=== PATIENT | female | born 1960 | race Caucasian/White ===

== ENCOUNTER 2019-04-24 19:42 | Emergency (ER) | payer MEDICARE ==
[~2019-04-24] VITALS: Ht 157.5 cm; Wt 55.5 kg
[~2019-04-24 19:42] MED LIST: ASPI-611 PO; ESCI10TA PO; HYDR-4383 PO; LORA0.5T PO; METO25TA6 PO; TRAZ-219 PO
[2019-04-24 20:42] LABS: URINE HCG NEGATIVE (NEG)
[2019-04-24 20:48] LABS: URINE AMPHETAMINE SCREEN NEGATIVE (Neg); URINE BARBITUATE SCREEN NEGATIVE (Neg); URINE BENZODIAZEPINES SCREEN POSITIVE (Neg); URINE CANNABINOID SCREEN POSITIVE (Neg); URINE COCAINE SCREEN NEGATIVE (Neg); URINE METHADONE SCREEN NEGATIVE (Neg); URINE OPIATE SCREEN POSITIVE (Neg); URINE PHENCYCLIDINE SCREEN NEGATIVE (Neg)
[2019-04-24 20:52] VITALS: BP 146/79
[2019-04-24 21:29] LABS: EOSINOPHILS # (AUTO) 0.3 X10'3 (0-0.9); HEMOGLOBIN 13.6 g/dl (12.0-16.0); LYMPHOCYTES # (AUTO) 4.4 X10'3 (1.1-4.8); LYMPHOCYTES % (AUTO) 49.1 % (21-51); MEAN PLATELET VOLUME 7.1 FL (7.4-10.4); MONOCYTES # (AUTO) 0.5 X10'3 (0-0.9); MONOCYTES % (AUTO) 5.4 % (2-12); RED CELL DISTRIBUTION WIDTH 15.8 % (11.5-14.5); WHITE BLOOD COUNT 8.9 X10'3 (4.5-11.0)
[2019-04-24 21:33] LABS: BASOPHILS # (AUTO) 0.1 X10'3 (0-0.2); BASOPHILS % (AUTO) 1.4 % (0-1); EOSINOPHILS % (AUTO) 3.3 % (0-6); HEMATOCRIT 40.7 % (35.0-45.0); MEAN CORPUSCULAR HEMOGLOBIN 33.5 PG (27.0-31.0); MEAN CORPUSCULAR HGB CONC 33.4 g/dL (33.0-36.5); MEAN CORPUSCULAR VOLUME 100.5 FL (78-98); NEUTROPHILS # (AUTO) 3.6 X10'3 (1.8-7.7); NEUTROPHILS % (AUTO) 40.8 % (42-75); PLATELET COUNT 319 X10'3 (140-440); RED BLOOD COUNT 4.05 X10'6 (4.20-5.60)
[2019-04-24 21:37] LABS: ALANINE AMINOTRANSFERASE 63 U/L (12-78); ALBUMIN 4.4 G/DL (3.4-5.0); ALBUMIN/GLOBULIN RATIO 1.2 (1.1-1.5); ALKALINE PHOSPHATASE 80 IU/L (46-116); ANION GAP 16 (8-16); ASPARTATE AMINO TRANSFERASE 62 U/L (10-37); BILIRUBIN,TOTAL 0.2 MG/DL (0.1-1.0); BLOOD UREA NITROGEN 12 MG/DL (7-18); BUN/CREATININE RATIO 16.9 (6.6-38.0); CALCIUM 8.5 MG/DL (8.5-10.1); CHLORIDE 110 MMOL/L (99-107); CREATININE 0.71 MG/DL (0.40-0.90); GLUCOSE 80 MG/DL (70-104); SODIUM 149 MMOL/L (135-145); TOTAL CARBON DIOXIDE 23.4 MMOL/L (24-32); TOTAL PROTEIN 8.2 G/DL (6.4-8.2); eGFR 84 ML/MIN
[2019-04-24 21:56] LABS: ETHANOL 0.311 GM/DL (0.0-0.010)
[2019-04-24] MEDS ORDERED: diphenhydrAMINE 25mg capsule PO ONE (22:15)
== END 2019-04-24 22:29 | disposition left against medical advice (07) ==
LOC: ER 19:43
DX: F32.9 Major depressive disorder, single episode, unspecified (principal); F10.129 Alcohol abuse with intoxication, unspecified; I10 Essential (primary) hypertension; G89.29 Other chronic pain; Z90.710 Acquired absence of both cervix and uterus; Z98.890 Other specified postprocedural states; Z79.82 Long term (current) use of aspirin; Z79.899 Other long term (current) drug therapy
CPT/HCPCS: 36415; 80053; 80305; 80320; 81025; 84443; 85025; 93005; 99284

== ENCOUNTER 2019-05-08 06:24 | Emergency (ER) | payer MEDICARE ==
[~2019-05-08] VITALS: Ht 157.5 cm; Wt 56.0 kg
[2019-05-08] MEDS ORDERED: OLANZapine 5mg rapidly disint. tablet PO ONE (06:35)
--- NOTE | 2019-05-08 07:14 | NUR ---
Pt states she is depressed but not suicidal. states she needs to know where the rest of her sons body parts are located.
[2019-05-08] MEDS ORDERED: diazepam 5mg tablet PO ONE (07:35)
--- NOTE | 2019-05-08 07:57 | NUR ---
Pt sitting up eating a sandwhich, calm/cooperative.
[2019-05-08 08:04] LABS: BASOPHILS # (AUTO) 0.1 X10'3 (0-0.2); BASOPHILS % (AUTO) 0.9 % (0-1); EOSINOPHILS # (AUTO) 0.3 X10'3 (0-0.9); EOSINOPHILS % (AUTO) 4.1 % (0-6); HEMATOCRIT 38.4 % (35.0-45.0); HEMOGLOBIN 13.2 g/dl (12.0-16.0); LYMPHOCYTES # (AUTO) 3.2 X10'3 (1.1-4.8); LYMPHOCYTES % (AUTO) 38.8 % (21-51); MEAN CORPUSCULAR HEMOGLOBIN 34.5 PG (27.0-31.0); MEAN CORPUSCULAR HGB CONC 34.4 g/dL (33.0-36.5); MEAN CORPUSCULAR VOLUME 100.3 FL (78-98); MEAN PLATELET VOLUME 7.2 FL (7.4-10.4); MONOCYTES # (AUTO) 0.8 X10'3 (0-0.9); MONOCYTES % (AUTO) 9.8 % (2-12); NEUTROPHILS # (AUTO) 3.9 X10'3 (1.8-7.7); NEUTROPHILS % (AUTO) 46.4 % (42-75); PLATELET COUNT 274 X10'3 (140-440); RED BLOOD COUNT 3.83 X10'6 (4.20-5.60); RED CELL DISTRIBUTION WIDTH 15.3 % (11.5-14.5); WHITE BLOOD COUNT 8.3 X10'3 (4.5-11.0)
[2019-05-08 08:05] LABS: CLARITY,URINE SLIGHTLY CLOUDY (Clear); COLOR,URINE YELLOW (Yellow); GLUCOSE, URINE NEGATIVE (Neg); KETONES,URINE NEGATIVE (Neg); LEUKOCYTE ESTERASE ,URINE LARGE (Neg); NITRITES, URINE POSITIVE (Neg); OCCULT BLOOD,URINE NEGATIVE (Neg); PROTEIN,URINE NEGATIVE (Neg); UROBILINOGEN,URINE 0.2 E.U/dL (0.2-1.0)
[2019-05-08 08:06] LABS: ALANINE AMINOTRANSFERASE 83 U/L (12-78); ALBUMIN 4.2 G/DL (3.4-5.0); ALBUMIN/GLOBULIN RATIO 1.2 (1.1-1.5); ALKALINE PHOSPHATASE 82 IU/L (46-116); ANION GAP 9 (8-16); ASPARTATE AMINO TRANSFERASE 88 U/L (10-37); BILIRUBIN,TOTAL 0.2 MG/DL (0.1-1.0); BLOOD UREA NITROGEN 10 MG/DL (7-18); BUN/CREATININE RATIO 15.2 (6.6-38.0); CALCIUM 8.9 MG/DL (8.5-10.1); CHLORIDE 109 MMOL/L (99-107); CREATININE 0.66 MG/DL (0.40-0.90); ETHANOL 0.239 GM/DL (0.0-0.010); GLUCOSE 87 MG/DL (70-104); POTASSIUM 3.7 MMOL/L (3.5-5.1); SODIUM 147 MMOL/L (135-145); TOTAL CARBON DIOXIDE 28.8 MMOL/L (24-32); TOTAL PROTEIN 7.8 G/DL (6.4-8.2); eGFR > 90 ML/MIN
[2019-05-08 08:06] LABS: UA COLLECTION TYPE CLN CATCH MIDSTREAM; URINE AMPHETAMINE SCREEN NEGATIVE (Neg); URINE BARBITUATE SCREEN NEGATIVE (Neg); URINE BENZODIAZEPINES SCREEN POSITIVE (Neg); URINE CANNABINOID SCREEN POSITIVE (Neg); URINE COCAINE SCREEN NEGATIVE (Neg); URINE METHADONE SCREEN NEGATIVE (Neg); URINE OPIATE SCREEN NEGATIVE (Neg); URINE PHENCYCLIDINE SCREEN NEGATIVE (Neg)
[2019-05-08 08:17] LABS: WBC,URINE 30-50 /HPF (0-4)
[2019-05-08 08:18] LABS: RBC,URINE 0-2 /HPF (0-2)
[2019-05-08 08:20] LABS: BACTERIA,URINE 3+ /HPF (Neg); SQUAMOUS EPITHELIAL CELL,UR MANY /LPF (FEW)
[2019-05-08] MEDS ORDERED: diphenhydrAMINE 50 mg/ml inj IM ONE (09:00)
[2019-05-08] MEDS ORDERED: haloperidol lactate 5mg/ml inj IM ONE (09:00)
--- NOTE | 2019-05-08 09:12 | NUR ---
Pt began threatening to leave, walked out of room and attempted to leave ER. Staff and security able to talk patient back to her room. Pt received medication per MD order. Pt is now calm/cooperative and laying down.
--- NOTE | 2019-05-08 09:27 | NUR ---
PACKET FAXED TO [facility]
--- NOTE | 2019-05-08 10:10 | NUR ---
pt appears to be resting quietly in bed. pt was up at nurses station approx 25 minutes ago thinking it was 0400. pt was reoriented, ambulated to the restroom then back to bed.
--- NOTE | 2019-05-08 10:40 | NUR ---
pt is resting quietly and sleeping on right side
--- NOTE | 2019-05-08 11:03 | NUR ---
Pt sleeping, no signs of distress noted at this time
--- NOTE | 2019-05-08 11:19 | NUR ---
maryfrienanu came by to give keys to patient luz [phone]
--- NOTE | 2019-05-08 11:59 | NUR ---
PT RESTING QUIETLY ON SIDE
--- NOTE | 2019-05-08 12:20 | NUR ---
PT WENT TO BATHROOM AND ASKED FOR MORE MEDS. NURSE GAVE PT MEDS AT 0912 AND NOTHING IS DUE AT THE MOMENT
--- NOTE | 2019-05-08 12:23 | NUR ---
PT CAME BACK UP TO ASK FOR PAIN MEDS
[2019-05-08] MEDS ORDERED: HYDROcodone/acetaminophen 5mg/325mg tablet PO ONE (12:55)
[2019-05-08] MEDS ORDERED: cephalexin 250mg capsule PO ONE (13:00)
--- NOTE | 2019-05-08 14:10 | NUR ---
pt has increased anxiety and is up to the desk frequently. pt first talking about a bump on her left arm stating that she had a blood clot 10 years ago that lead her to be on coumadin. pt does have a bump on her arm that appears slightly pink in color and is firm, md notified. pt also requesting telephone to call significant other. pt s/w sig. other on phone and redirection will cont to be encouraged. no signs of distress noted.
--- NOTE | 2019-05-08 14:11 | NUR ---
pt is standing in front of me on speaker phone with boyfriend
--- NOTE | 2019-05-08 14:59 | NUR ---
pts boyfriend is at bedside and gave pt hearing aide batteries
--- NOTE | 2019-05-08 17:29 | NUR ---
[facility] AT BEDSIDE TALKING WITH PT
--- NOTE | 2019-05-08 17:53 | NUR ---
pt was cleared from mental health. pt is now getting dressed to go home.
[2019-05-08] MEDS ORDERED: CEPH500C5 PO (17:54)
[2019-05-08 18:02] VITALS: BP 134/82
[2019-05-08] MEDS ORDERED: lactobacillus rhamnosus 10,000 MMU CELLS/CAPSULE PO SCH (20:00)
== END 2019-05-08 18:00 | disposition home or self-care (01) ==
LOC: ER 06:25
DX: F10.929 Alcohol use, unspecified with intoxication, unspecified (principal); F32.9 Major depressive disorder, single episode, unspecified; N39.0 Urinary tract infection, site not specified; R45.851 Suicidal ideations; I10 Essential (primary) hypertension; G89.29 Other chronic pain; Z90.710 Acquired absence of both cervix and uterus; Z98.890 Other specified postprocedural states; Z79.82 Long term (current) use of aspirin; Z79.899 Other long term (current) drug therapy; Y90.9 Presence of alcohol in blood, level not specified
CPT/HCPCS: 36415; 80053; 80305; 80320; 81001; 85025; 96372; 99284; J1200; J1630

== ENCOUNTER 2019-09-16 13:52 | Emergency (ER) | payer BC, MEDICARE, OTHER ==
[~2019-09-16] VITALS: Ht 157.5 cm; Wt 55.8 kg
[~2019-09-16 13:52] MED LIST changes: +CEPH500C5 PO; -TRAZ-219 PO; +TRAZ-256 PO
[2019-09-16 14:04] VITALS: BP 121/73
[2019-09-16] MEDS ORDERED: CHLO25CA10 PO (15:01)
== END 2019-09-16 15:19 | disposition home or self-care (01) ==
LOC: ER 13:52
DX: R25.1 Tremor, unspecified (principal); I10 Essential (primary) hypertension; G89.29 Other chronic pain; Z98.890 Other specified postprocedural states; Z72.89 Other problems related to lifestyle; Z79.82 Long term (current) use of aspirin; Z79.899 Other long term (current) drug therapy
CPT/HCPCS: 99284

== ENCOUNTER 2020-02-01 01:22 | Emergency (ER) | payer BC ==
[~2020-02-01] VITALS: Ht 157.5 cm; Wt 54.5 kg
[~2020-02-01 01:22] MED LIST changes: +CHLO25CA10 PO
[2020-02-01 01:26] VITALS: BP 126/89
--- NOTE | 2020-02-01 02:06 | NUR ---
Patient up to the bathroom
[2020-02-01 02:21] LABS: BASOPHILS # (AUTO) 0.1 X10'3 (0-0.2); BASOPHILS % (AUTO) 1.4 % (0-1); EOSINOPHILS # (AUTO) 0.3 X10'3 (0-0.9); HEMATOCRIT 33.5 % (35.0-45.0); HEMOGLOBIN 11.2 g/dl (12.0-16.0); LYMPHOCYTES # (AUTO) 2.7 X10'3 (1.1-4.8); LYMPHOCYTES % (AUTO) 32.4 % (21-51); MEAN CORPUSCULAR HEMOGLOBIN 33.8 PG (27.0-31.0); MEAN CORPUSCULAR HGB CONC 33.5 g/dL (33.0-36.5); MEAN PLATELET VOLUME 8.5 FL (7.4-10.4); MONOCYTES # (AUTO) 0.5 X10'3 (0-0.9); MONOCYTES % (AUTO) 6.6 % (2-12); NEUTROPHILS # (AUTO) 4.6 X10'3 (1.8-7.7); NEUTROPHILS % (AUTO) 55.6 % (42-75); PLATELET COUNT 146 X10'3 (140-440); RED BLOOD COUNT 3.32 X10'6 (4.20-5.60); RED CELL DISTRIBUTION WIDTH 15.2 % (11.5-14.5); WHITE BLOOD COUNT 8.2 X10'3 (4.5-11.0)
[2020-02-01 02:22] LABS: CLARITY,URINE CLEAR (Clear); COLOR,URINE YELLOW (Yellow); GLUCOSE, URINE NEGATIVE (Neg); KETONES,URINE NEGATIVE (Neg); LEUKOCYTE ESTERASE ,URINE NEGATIVE (Neg); NITRITES, URINE NEGATIVE (Neg); OCCULT BLOOD,URINE NEGATIVE (Neg); PROTEIN,URINE NEGATIVE (Neg); UA COLLECTION TYPE CLN CATCH MIDSTREAM; URINE HCG NEGATIVE (NEG)
[2020-02-01 02:34] LABS: ALANINE AMINOTRANSFERASE 72 U/L (12-78); ALBUMIN 3.7 G/DL (3.4-5.0); ALBUMIN/GLOBULIN RATIO 1.1 (1.1-1.5); ALKALINE PHOSPHATASE 73 IU/L (46-116); ANION GAP 11 (8-16); ASPARTATE AMINO TRANSFERASE 69 U/L (10-37); BILIRUBIN,TOTAL 0.3 MG/DL (0.1-1.0); BLOOD UREA NITROGEN 5 MG/DL (7-18); BUN/CREATININE RATIO 9.1 (6.6-38.0); CALCIUM 8.3 MG/DL (8.5-10.1); CHLORIDE 104 MMOL/L (99-107); CREATININE 0.55 MG/DL (0.40-0.90); GLUCOSE 89 MG/DL (70-104); POTASSIUM 3.6 MMOL/L (3.5-5.1); SODIUM 144 MMOL/L (135-145); TOTAL CARBON DIOXIDE 29.5 MMOL/L (24-32); TOTAL PROTEIN 7.1 G/DL (6.4-8.2); eGFR > 90 ML/MIN
[2020-02-01 02:36] LABS: URINE AMPHETAMINE SCREEN NEGATIVE (Neg); URINE BARBITUATE SCREEN NEGATIVE (Neg); URINE BENZODIAZEPINES SCREEN POSITIVE (Neg); URINE CANNABINOID SCREEN POSITIVE (Neg); URINE COCAINE SCREEN NEGATIVE (Neg); URINE METHADONE SCREEN NEGATIVE (Neg); URINE OPIATE SCREEN NEGATIVE (Neg); URINE PHENCYCLIDINE SCREEN NEGATIVE (Neg)
[2020-02-01 02:43] LABS: ETHANOL 0.142 GM/DL (0.0-0.010)
--- NOTE | 2020-02-01 02:47 | NUR ---
Per Registration, patient walked out of ER.
== END 2020-02-01 02:50 | disposition left against medical advice (07) ==
LOC: ER 01:23
DX: F43.0 Acute stress reaction (principal); F10.129 Alcohol abuse with intoxication, unspecified; D64.9 Anemia, unspecified; F12.90 Cannabis use, unspecified, uncomplicated; I10 Essential (primary) hypertension; G89.29 Other chronic pain; F41.9 Anxiety disorder, unspecified; F32.9 Major depressive disorder, single episode, unspecified; Z90.710 Acquired absence of both cervix and uterus; Z98.890 Other specified postprocedural states; Z79.82 Long term (current) use of aspirin; Z79.899 Other long term (current) drug therapy; Y90.0 Blood alcohol level of less than 20 mg/100 ml
CPT/HCPCS: 36415; 80053; 80305; 80320; 81003; 81025; 84443; 85025; 99283

== ENCOUNTER 2020-02-28 16:55 | Emergency (ER) | payer BC ==
[~2020-02-28] VITALS: Ht 157.5 cm; Wt 54.5 kg
[2020-02-28] MEDS ORDERED: diphenhydrAMINE 25mg capsule PO ONE (17:30)
[2020-02-28 18:25] LABS: URINE AMPHETAMINE SCREEN NEGATIVE (Neg); URINE BARBITUATE SCREEN NEGATIVE (Neg); URINE BENZODIAZEPINES SCREEN POSITIVE (Neg); URINE CANNABINOID SCREEN POSITIVE (Neg); URINE COCAINE SCREEN NEGATIVE (Neg); URINE METHADONE SCREEN NEGATIVE (Neg); URINE OPIATE SCREEN NEGATIVE (Neg); URINE PHENCYCLIDINE SCREEN NEGATIVE (Neg)
[2020-02-28] MEDS ORDERED: DOXE50CA4 PO (18:38)
[2020-02-28 18:45] LABS: BASOPHILS # (AUTO) 0.1 X10'3 (0-0.2); BASOPHILS % (AUTO) 0.6 % (0-1); EOSINOPHILS # (AUTO) 0.1 X10'3 (0-0.9); EOSINOPHILS % (AUTO) 1.2 % (0-6); HEMATOCRIT 42.3 % (35.0-45.0); HEMOGLOBIN 14.1 g/dl (12.0-16.0); LYMPHOCYTES # (AUTO) 3.8 X10'3 (1.1-4.8); LYMPHOCYTES % (AUTO) 44.5 % (21-51); MEAN CORPUSCULAR HEMOGLOBIN 33.2 PG (27.0-31.0); MEAN CORPUSCULAR HGB CONC 33.4 g/dL (33.0-36.5); MEAN CORPUSCULAR VOLUME 99.5 FL (78-98); MEAN PLATELET VOLUME 7.4 FL (7.4-10.4); MONOCYTES # (AUTO) 0.7 X10'3 (0-0.9); MONOCYTES % (AUTO) 8.3 % (2-12); NEUTROPHILS # (AUTO) 3.9 X10'3 (1.8-7.7); NEUTROPHILS % (AUTO) 45.4 % (42-75); PLATELET COUNT 233 X10'3 (140-440); RED BLOOD COUNT 4.25 X10'6 (4.20-5.60); RED CELL DISTRIBUTION WIDTH 14.8 % (11.5-14.5); WHITE BLOOD COUNT 8.5 X10'3 (4.5-11.0)
[2020-02-28] MEDS ORDERED: nicotine 21mg patch - 24 hr TD ONE (19:00)
[2020-02-28] MEDS ORDERED: LORazepam 1 MG tablet PO ONE (19:00)
[2020-02-28 19:01] LABS: ALANINE AMINOTRANSFERASE 40 U/L (12-78); ALBUMIN 4.4 G/DL (3.4-5.0); ALBUMIN/GLOBULIN RATIO 1.2 (1.1-1.5); ALKALINE PHOSPHATASE 74 IU/L (46-116); ANION GAP 11 (8-16); ASPARTATE AMINO TRANSFERASE 48 U/L (10-37); BILIRUBIN,TOTAL 0.5 MG/DL (0.1-1.0); BLOOD UREA NITROGEN 18 MG/DL (7-18); BUN/CREATININE RATIO 20.9 (6.6-38.0); CALCIUM 9.1 MG/DL (8.5-10.1); CHLORIDE 102 MMOL/L (99-107); CREATININE 0.86 MG/DL (0.40-0.90); GLUCOSE 94 MG/DL (70-104); SODIUM 143 MMOL/L (135-145); TOTAL CARBON DIOXIDE 29.7 MMOL/L (24-32); TOTAL PROTEIN 8.1 G/DL (6.4-8.2); eGFR 67 ML/MIN
[2020-02-28 19:09] LABS: ETHANOL 0.217 GM/DL (0.0-0.010)
--- NOTE | 2020-02-28 19:30 | NUR ---
Pt. ambulated to OF from main ER with ENROLLMENT CONSULTANT and two ER techs.
[2020-02-28 20:02] LABS: CLARITY,URINE SLIGHTLY CLOUDY (Clear); COLOR,URINE AMBER (Yellow); GLUCOSE, URINE NEGATIVE (Neg); KETONES,URINE TRACE mg/dl (Neg); LEUKOCYTE ESTERASE ,URINE NEGATIVE (Neg); NITRITES, URINE NEGATIVE (Neg); OCCULT BLOOD,URINE TRACE-INTACT (Neg); PROTEIN,URINE TRACE mg/dl (Neg); UA COLLECTION TYPE CLN CATCH MIDSTREAM; UROBILINOGEN,URINE 0.2 E.U/dL (0.2-1.0)
[2020-02-28 20:24] LABS: BACTERIA,URINE 1+ /HPF (Neg); MUCUS STRANDS MANY /LPF (Neg); RBC,URINE 0-2 /HPF (0-2); SQUAMOUS EPITHELIAL CELL,UR MANY /LPF (FEW); WBC,URINE 0-4 /HPF (0-4)
[2020-02-28 20:25] LABS: AMORPHOUS URATES 2+; CAL OXALATE CRYSTALS 1+ /HPF (NEGATIVE)
--- NOTE | 2020-02-28 20:30 | NUR ---
Pt. resting in bed at this time. She is awake, calm and cooperative. No concerns at the moment.
--- NOTE | 2020-02-28 21:30 | NUR ---
Pt. in bed, AOX4. Resting.
--- NOTE | 2020-02-28 22:30 | NUR ---
Pt. experiencing restlesness. She is also requesting some food. Pt. given turkey sandwich, side salad and a carton of milk. No other needs at this time.
--- NOTE | 2020-02-28 23:27 | NUR ---
Pt. states that she is having a hard time going to sleep. She reports that she usually takes doxepin at home. made aware of this. N.O received for x1 dose of ambien 5mg.
[2020-02-28] MEDS ORDERED: zolpidem 5mg tablet PO ONE (23:35)
--- NOTE | 2020-02-28 23:51 | NUR ---
Pt is sleeping, resting comfortably on her right side with visible respirations. She does not show any sign of pain or distress and is in direct line of sight of the nursing station.
--- NOTE | 2020-02-29 00:51 | NUR ---
Pt. requested more iced water and was provided with. No other needs at this time. Pt. resumes with sleep and appears to be comfortable.
--- NOTE | 2020-02-29 01:45 | NUR ---
Pt. continues to sleep. Appears to be comfortable.
--- NOTE | 2020-02-29 02:46 | NUR ---
Pt. sleeping on R side. Appears comfortable.
[2020-02-29] MEDS ORDERED: CHLO25CA10 PO (02:52)
[2020-02-29] MEDS ORDERED: DIAZ5TAB5 PO (03:24)
[2020-02-29] MEDS ORDERED: ESCI10TA61 PO (03:24)
[2020-02-29] MEDS ORDERED: HYDR-3972 PO (03:24)
--- NOTE | 2020-02-29 03:45 | NUR ---
Pt. remains sleeping at this time. Even chest rise observed. No concerns.
[2020-02-29] MEDS ORDERED: HYDROcodone/acetaminophen 10/325mg tab PO PRN (03:50)
--- NOTE | 2020-02-29 04:40 | NUR ---
Pt. continues to sleep. Appears comfortable.
--- NOTE | 2020-02-29 05:00 | NUR ---
Packet faxed to [facility].
[2020-02-29 05:47] VITALS: BP 126/83
--- NOTE | 2020-02-29 05:51 | NUR ---
VS taken at this time and were WNL. Pt. denies discomfort. No needs/concerns. Pt. returned to sleep.
--- NOTE | 2020-02-29 07:46 | NUR ---
pt removed bandaids to left forearm. Pt has an abrasion on her left elbow and another on her left forearm. wounds cleaned with ns and bacitracin applied, covered with bandaids.
[2020-02-29] MEDS ORDERED: diazepam 5mg tablet PO SCH (08:00)
[2020-02-29] MEDS ORDERED: ESCITALOPRAM OXALATE 5 MG TABLET PO SCH (08:00)
[2020-02-29] MEDS ORDERED: aspirin 81mg tab.chew PO SCH (08:30)
== END 2020-02-29 09:58 | disposition home or self-care (01) ==
LOC: ER 16:56
DX: R45.851 Suicidal ideations (principal); I10 Essential (primary) hypertension; G89.29 Other chronic pain; F41.9 Anxiety disorder, unspecified; F32.9 Major depressive disorder, single episode, unspecified; Z90.710 Acquired absence of both cervix and uterus; Z98.890 Other specified postprocedural states; Z72.89 Other problems related to lifestyle; Z79.82 Long term (current) use of aspirin; Z79.899 Other long term (current) drug therapy
CPT/HCPCS: 36415; 80053; 80305; 80320; 81001; 84443; 85025; 99285; Q0163

== ENCOUNTER 2021-05-22 03:32 | Emergency (ER) | payer BC ==
[~2021-05-22] VITALS: Ht 157.5 cm; Wt 56.8 kg
[~2021-05-22 03:32] MED LIST changes: -CEPH500C5 PO; -CHLO25CA10 PO; +DIAZ5TAB5 PO; +DOXE50CA4 PO; +ESCI-8 PO; -ESCI10TA PO; +HYDR-3972 PO; -HYDR-4383 PO; -LORA0.5T PO; -METO25TA6 PO; -TRAZ-256 PO
[2021-05-22] MEDS ORDERED: acetaminophen 325mg tablet PO ONE (03:40)
[2021-05-22] MEDS ORDERED: ONDA4TAB6 PO (03:45)
[2021-05-22] MEDS ORDERED: HYDR-3972 PO (03:45)
[2021-05-22] MEDS ORDERED: ondansetron 4mg rapidly disintigrating tab PO ONE ×2 (03:50→04:15)
[2021-05-22] MEDS ORDERED: HYDROcodone/acetaminophen 10/325mg tab PO ONE (04:15)
[2021-05-22] MEDS ORDERED: BUPIVAcaine/PF 7.5mg/ml (0.75%) 10ml vial IJ ONE (04:20)
--- NOTE | 2021-05-22 05:02 | NUR ---
[employer] AT BEDSIDE
[2021-05-22 05:28] VITALS: BP 134/76
== END 2021-05-22 05:30 | disposition home or self-care (01) ==
LOC: ER 03:33
DX: S60.212A Contusion of left wrist, initial encounter (principal); I10 Essential (primary) hypertension; G89.29 Other chronic pain; Z85.9 Personal history of malignant neoplasm, unspecified; Z72.89 Other problems related to lifestyle; Z90.710 Acquired absence of both cervix and uterus; Z79.82 Long term (current) use of aspirin; Z79.899 Other long term (current) drug therapy; W06.XXXA Fall from bed, initial encounter; Y93.89 Activity, other specified; Y92.89 Other specified places as the place of occurrence of the external cause; Y99.8 Other external cause status
CPT/HCPCS: 29125; 64450; 73110; 99284

== ENCOUNTER 2021-06-04 19:41 | Emergency (ER) | payer BC ==
[~2021-06-04] VITALS: Ht 157.5 cm; Wt 59.0 kg
[~2021-06-04 19:41] MED LIST changes: +ONDA4TAB6 PO
[2021-06-04 19:44] VITALS: BP 127/80
[2021-06-04] MEDS ORDERED: HYDROcodone/acetaminophen 5mg/325mg tablet PO ONE (20:00)
[2021-06-04] MEDS ORDERED: ondansetron 4mg rapidly disintigrating tab PO ONE (20:00)
== END 2021-06-04 20:25 | disposition home or self-care (01) ==
LOC: ER 19:42
DX: M25.532 Pain in left wrist (principal); M79.602 Pain in left arm; I10 Essential (primary) hypertension; G89.29 Other chronic pain; Z72.89 Other problems related to lifestyle; Z90.710 Acquired absence of both cervix and uterus; Z85.9 Personal history of malignant neoplasm, unspecified; Z79.82 Long term (current) use of aspirin; Z79.899 Other long term (current) drug therapy
CPT/HCPCS: 29125; 99283

== ENCOUNTER 2021-11-22 18:20 | Emergency (ER) | payer BC ==
[~2021-11-22] VITALS: Ht 157.5 cm; Wt 56.0 kg
[2021-11-22] MEDS ORDERED: predniSONE 20 mg tablet PO ONE (20:40)
[2021-11-22] MEDS ORDERED: ondansetron 4mg rapidly disintigrating tab PO ONE (20:40)
[2021-11-22] MEDS ORDERED: sulfamethoxazole/trimethoprim DS (800/160mg) tablet PO ONE (20:40)
[2021-11-22] MEDS ORDERED: PRED20TA PO (20:41)
[2021-11-22] MEDS ORDERED: SULF1TAB49 PO (20:41)
[2021-11-22 21:00] VITALS: BP 146/86
== END 2021-11-22 21:01 | disposition home or self-care (01) ==
LOC: ER 18:21
DX: L03.113 Cellulitis of right upper limb (principal); R21 Rash and other nonspecific skin eruption; I10 Essential (primary) hypertension; G89.29 Other chronic pain; F41.9 Anxiety disorder, unspecified; F32.A Depression, unspecified; Z90.710 Acquired absence of both cervix and uterus; Z98.890 Other specified postprocedural states; Z72.89 Other problems related to lifestyle; Z79.82 Long term (current) use of aspirin; Z79.2 Long term (current) use of antibiotics; Z79.899 Other long term (current) drug therapy
CPT/HCPCS: 99284; J7512

== ENCOUNTER 2023-05-20 07:57 | Emergency (ER) | payer BC ==
[~2023-05-20] VITALS: Ht 157.5 cm; Wt 58.0 kg
[~2023-05-20 07:57] MED LIST changes: -ASPI-611 PO; -ESCI-8 PO; +MULT-25 PO; +NALT50TA PO; +NICO-687 TD; -ONDA4TAB6 PO; +THIA100T70 PO; +ZIPR40CA14 PO
[2023-05-20 08:42] LABS: BASOPHILS # (AUTO) 0.2 X10'3 (0-0.2); BASOPHILS % (AUTO) 0.8 % (0-1); EOSINOPHILS % (AUTO) 0.2 % (0-6); HEMATOCRIT 34.3 % (35.0-45.0); HEMOGLOBIN 11.4 g/dl (12.0-16.0); LYMPHOCYTES # (AUTO) 1.5 X10'3 (1.1-4.8); LYMPHOCYTES % (AUTO) 7.7 % (21-51); MEAN CORPUSCULAR HEMOGLOBIN 33.3 PG (27.0-31.0); MEAN CORPUSCULAR HGB CONC 33.3 g/dL (33.0-36.5); MEAN CORPUSCULAR VOLUME 99.8 FL (78-98); MEAN PLATELET VOLUME 7.9 FL (7.4-10.4); MONOCYTES # (AUTO) 1.1 X10'3 (0-0.9); MONOCYTES % (AUTO) 5.3 % (2-12); NEUTROPHILS # (AUTO) 17.4 X10'3 (1.8-7.7); PLATELET COUNT 235 X10'3 (140-440); RED BLOOD COUNT 3.43 X10'6 (4.20-5.60); RED CELL DISTRIBUTION WIDTH 14.5 % (11.5-14.5); WHITE BLOOD COUNT 20.2 X10'3 (4.5-11.0)
[2023-05-20 08:57] LABS: ALANINE AMINOTRANSFERASE 51 U/L (12-78); ALBUMIN 4.6 G/DL (3.4-5.0); ALBUMIN/GLOBULIN RATIO 1.4 (1.1-1.5); ALKALINE PHOSPHATASE 55 IU/L (46-116); ANION GAP 15 (8-16); ASPARTATE AMINO TRANSFERASE 33 U/L (10-37); BILIRUBIN,TOTAL 0.7 MG/DL (0.1-1.0); BLOOD UREA NITROGEN 18 MG/DL (7-18); CALCIUM 9.7 MG/DL (8.5-10.1); CHLORIDE 89 MMOL/L (99-107); GLUCOSE 122 MG/DL (70-104); SALICYLATE 4.6 MG/DL (4.0-20.0); SODIUM 131 MMOL/L (135-145); TOTAL CARBON DIOXIDE 27.5 MMOL/L (24-32); TOTAL PROTEIN 7.9 G/DL (6.4-8.2); eCRCL 30 ML/MIN; eGFR 35 ML/MIN
[2023-05-20 08:59] LABS: PLATELET ESTIMATE NORMAL; POIKILOCYTOSIS FEW; TEAR DROP CELLS FEW
[2023-05-20 09:01] LABS: ETHANOL < 10 MG/DL (<10)
[2023-05-20 09:03] LABS: ACETAMINOPHEN < 2.0 UG/ML (10-30)
[2023-05-20] MEDS ORDERED: potassium chloride 8mEq ER tablet PO STA (09:33)
[2023-05-20] MEDS ORDERED: diazepam 5mg tablet PO STA (09:49)
[2023-05-20] MEDS ORDERED: HYDROcodone/acetaminophen 10/325mg tab PO ONE (09:50)
[2023-05-20] MEDS ORDERED: diazepam 2mg tablet PO STA (09:52)
--- NOTE | 2023-05-20 10:12 | NUR ---
Patient stating she does not feel suicidal at this time. Stating she has not felt safe for the last few days because she has been visual hallucintations - seeing people who have . Pt stating she had several arguments yesterday with "people that aren't even there I realized." No SI at this time.
[2023-05-20 11:20] LABS: BILIRUBIN,URINE NEGATIVE (Neg); CLARITY,URINE SLIGHTLY CLOUDY (Clear); COLOR,URINE YELLOW (Yellow); GLUCOSE, URINE NEGATIVE (Neg); KETONES,URINE 15 mg/dl (Neg); LEUKOCYTE ESTERASE ,URINE NEGATIVE (Neg); NITRITES, URINE NEGATIVE (Neg); OCCULT BLOOD,URINE NEGATIVE (Neg); PROTEIN,URINE NEGATIVE (Neg); UROBILINOGEN,URINE 0.2 E.U/dL (0.2-1.0)
[2023-05-20 11:25] LABS: UA COLLECTION TYPE CLN CATCH MIDSTREAM
[2023-05-20 11:26] LABS: FINE GRANULAR CAST 0-3 /LPF (NEGATIVE); SQUAMOUS EPITHELIAL CELL,UR MANY /LPF (FEW)
[2023-05-20 11:27] LABS: BACTERIA,URINE 2+ /HPF (Neg)
[2023-05-20 11:28] LABS: CAL OXALATE CRYSTALS 1+ /HPF (NEGATIVE); RBC,URINE 0-2 /HPF (0-2)
[2023-05-20 11:29] LABS: TRANSITIONAL EPI CELLS,URINE FEW /HPF
--- NOTE | 2023-05-20 14:08 | NUR ---
PACKET FAXED TO [facility]
--- NOTE | 2023-05-20 14:44 | NUR ---
Received order for consult. Met with patient in regards to alcohol use and to see if patient was interested in resources for treatment options. Patient is interested in resources. Patient would like medication to help her with cravings. I talked to her about Naltrexone. I gave patient a card for [facility] to call and get started on Naltrexone and my card to call me with any questions.
[2023-05-20 15:47] LABS: URINE AMPHETAMINE SCREEN NEGATIVE (Neg); URINE BARBITUATE SCREEN NEGATIVE (Neg); URINE BENZODIAZEPINES SCREEN NEGATIVE (Neg); URINE CANNABINOID SCREEN POSITIVE (Neg); URINE COCAINE SCREEN NEGATIVE (Neg); URINE METHADONE SCREEN NEGATIVE (Neg); URINE OPIATE SCREEN POSITIVE (Neg); URINE PHENCYCLIDINE SCREEN NEGATIVE (Neg)
[2023-05-20 18:22] LABS: LIPASE 20 U/L (16-77)
[2023-05-20] MEDS ORDERED: diazepam 5mg tablet PO PRN (19:25)
[2023-05-20] MEDS: doxepin 25mg capsule PO SCH (20:41)
[2023-05-20] MEDS: diazepam 5mg tablet PO PRN (20:57)
--- NOTE | 2023-05-21 02:10 | NUR ---
Arrived to ED overflow-bed 20 at this time. No s/sx of distress noted. VSS. Pleasant, calm and cooperative. Will continue to monitor.
[2023-05-21] MEDS: HYDROcodone/acetaminophen 5mg/325mg tablet PO PRN ×2 (02:35→14:10)
--- NOTE | 2023-05-21 02:39 | NUR ---
Pt c/o pain, 02/18 lower back. [place] 5/325mg x 2 tablets given.
[2023-05-21] MEDS: diazepam 5mg tablet PO PRN ×2 (03:36→13:03)
--- NOTE | 2023-05-21 03:36 | NUR ---
Pt c/o high anxiety. Valium 5mg given.
--- NOTE | 2023-05-21 03:59 | NUR ---
Patient sleeping on his right side. No distress observed. Continue to monitor.
--- NOTE | 2023-05-21 05:44 | NUR ---
Patient is sleeping on her left side, RR even and unlabored. Monitor for safety.
--- NOTE | 2023-05-21 06:54 | NUR ---
Pt lying in bed awake supine. No s/s of distress. Respirations even and unlabored.
[2023-05-21] MEDS ORDERED: potassium chloride 8mEq ER tablet PO SCH (08:00)
[2023-05-21] MEDS: doxepin 25mg capsule PO SCH (08:01)
--- NOTE | 2023-05-21 09:01 | NUR ---
Pt transferred back to ER bed 13. Cleared by [facility].
--- NOTE | 2023-05-21 09:40 | NUR ---
recieved report from andreina KINSEY assuming care of pt
[2023-05-21 13:11] LABS: BASOPHILS # (AUTO) 0.1 X10'3 (0-0.2); BASOPHILS % (AUTO) 0.5 % (0-1); EOSINOPHILS # (AUTO) 0.3 X10'3 (0-0.9); EOSINOPHILS % (AUTO) 2.7 % (0-6); HEMATOCRIT 34.3 % (35.0-45.0); HEMOGLOBIN 11.4 g/dl (12.0-16.0); LYMPHOCYTES # (AUTO) 2.4 X10'3 (1.1-4.8); LYMPHOCYTES % (AUTO) 21.5 % (21-51); MEAN CORPUSCULAR HEMOGLOBIN 33.6 PG (27.0-31.0); MEAN CORPUSCULAR HGB CONC 33.3 g/dL (33.0-36.5); MEAN PLATELET VOLUME 8.2 FL (7.4-10.4); MONOCYTES # (AUTO) 0.8 X10'3 (0-0.9); MONOCYTES % (AUTO) 7.2 % (2-12); NEUTROPHILS # (AUTO) 7.6 X10'3 (1.8-7.7); NEUTROPHILS % (AUTO) 68.1 % (42-75); PLATELET COUNT 207 X10'3 (140-440); RED BLOOD COUNT 3.39 X10'6 (4.20-5.60); RED CELL DISTRIBUTION WIDTH 14.8 % (11.5-14.5); WHITE BLOOD COUNT 11.1 X10'3 (4.5-11.0)
[2023-05-21] MEDS ORDERED: cephalexin 250mg capsule PO ONE (14:00)
[2023-05-21] MEDS ORDERED: CEPH-585 PO (14:01)
[2023-05-21 14:16] VITALS: BP 106/75; PULSE 102; RESP 14; TEMP 98.7; O2SAT 96
== END 2023-05-21 14:21 | disposition home or self-care (01) ==
LOC: ER 07:57
DX: F29 Unspecified psychosis not due to a substance or known physiological condition (principal); Z20.822 Contact with and (suspected) exposure to COVID-19; I10 Essential (primary) hypertension; F31.9 Bipolar disorder, unspecified; Z79.899 Other long term (current) drug therapy; Z90.710 Acquired absence of both cervix and uterus
CPT/HCPCS: 36415; 71045; 80053; 80305; 80320; 80329; 81001; 83605; 83690; 84145; 85008; 85025; 87040; 87811; 99285

== ENCOUNTER 2024-03-04 17:12 | Emergency (ER) | payer BC ==
[~2024-03-04] VITALS: Ht 157.5 cm; Wt 56.8 kg
[~2024-03-04 17:12] MED LIST changes: -DIAZ5TAB5 PO; +FOLI1TAB27 PO; -HYDR-3972 PO; -NALT50TA PO; +NALT50TA5 PO; -NICO-687 TD; +QUET100T34 PO; -THIA100T70 PO; +thiamine tablet PO
[2024-03-04] MEDS ORDERED: CEPH250T PO (19:18)
[2024-03-04] MEDS ORDERED: DIAZ-546 PO (19:18)
[2024-03-04] MEDS: HYDROcodone/acetaminophen 10/325mg tab PO ONE (19:32)
[2024-03-04] MEDS: diazepam 5mg tablet PO ONE (20:09)
[2024-03-04 20:11] LABS: BASOPHILS # (AUTO) 0.1 X10'3 (0-0.2); BASOPHILS % (AUTO) 1.8 % (0-1); EOSINOPHILS # (AUTO) 0.7 X10'3 (0-0.9); EOSINOPHILS % (AUTO) 9.5 % (0-6); HEMATOCRIT 29.5 % (35.0-45.0); HEMOGLOBIN 9.8 g/dl (12.0-16.0); LYMPHOCYTES % (AUTO) 25.4 % (21-51); MEAN CORPUSCULAR HEMOGLOBIN 32.6 PG (27.0-31.0); MEAN CORPUSCULAR HGB CONC 33.3 g/dL (33.0-36.5); MEAN CORPUSCULAR VOLUME 97.9 FL (78-98); MEAN PLATELET VOLUME 7.3 FL (7.4-10.4); MONOCYTES # (AUTO) 0.7 X10'3 (0-0.9); MONOCYTES % (AUTO) 9.4 % (2-12); NEUTROPHILS # (AUTO) 4.2 X10'3 (1.8-7.7); NEUTROPHILS % (AUTO) 53.9 % (42-75); PLATELET COUNT 304 X10'3 (140-440); RED BLOOD COUNT 3.02 X10'6 (4.20-5.60); RED CELL DISTRIBUTION WIDTH 14.8 % (11.5-14.5); WHITE BLOOD COUNT 7.8 X10'3 (4.5-11.0)
[2024-03-04 20:31] LABS: ALBUMIN 3.3 G/DL (3.4-5.0); ANION GAP 4 (8-16); BLOOD UREA NITROGEN 11 MG/DL (7-18); BUN/CREATININE RATIO 15.1 (10.0-20.0); CALCIUM 8.7 MG/DL (8.5-10.1); CHLORIDE 105 MMOL/L (99-107); CREATININE 0.73 MG/DL (0.40-0.90); ETHANOL < 10 MG/DL (<10); GLUCOSE 102 MG/DL (70-104); POTASSIUM 3.9 MMOL/L (3.5-5.1); PRO BRAIN NATRIURETIC PEPTIDE 240 PG/ML (0-125); SODIUM 142 MMOL/L (135-145); TOTAL CARBON DIOXIDE 32.7 MMOL/L (24-32); eCRCL 62 ML/MIN; eGFR 80 ML/MIN
[2024-03-04] MEDS: morphine 4 MG/ML inj SYRINge IV ONE (21:52)
[2024-03-04] MEDS: acetaminophen 325mg tablet PO ONE (22:13)
[2024-03-04] MEDS: ketorolac trometh. 30mg/ml inj. IV ONE (22:14)
[2024-03-04 22:44] VITALS: BP 134/61; PULSE 70; RESP 18; TEMP 97.4; O2SAT 99
== END 2024-03-04 22:45 | disposition home or self-care (01) ==
LOC: ER 17:13
DX: M79.604 Pain in right leg (principal); R22.41 Localized swelling, mass and lump, right lower limb; I10 Essential (primary) hypertension; G89.29 Other chronic pain; F41.9 Anxiety disorder, unspecified; F31.9 Bipolar disorder, unspecified; F12.90 Cannabis use, unspecified, uncomplicated; Z72.89 Other problems related to lifestyle; Z85.9 Personal history of malignant neoplasm, unspecified; Z79.2 Long term (current) use of antibiotics; Z79.899 Other long term (current) drug therapy; Z98.890 Other specified postprocedural states
CPT/HCPCS: 29515; 36415; 80048; 80320; 83880; 85025; 93971; 96374; 96375; 99285; A6223; J1885; J2270; A6258; A6446; A6449

== ENCOUNTER 2024-03-21 14:19 | Emergency (ER) | payer BC ==
[~2024-03-21] VITALS: Ht 157.5 cm; Wt 56.5 kg
[~2024-03-21 14:19] MED LIST changes: +CEPH250T PO; +DIAZ-546 PO; -DOXE50CA4 PO; -NALT50TA5 PO; -QUET100T34 PO
[2024-03-21 14:24] VITALS: TEMP 98.7
[2024-03-21] MEDS: HYDROcodone/acetaminophen 10/325mg tab PO ONE (15:32)
[2024-03-21] MEDS ORDERED: HYDR-3965 PO (16:17)
[2024-03-21 16:37] VITALS: BP 113/61; PULSE 95; RESP 16; O2SAT 96
== END 2024-03-21 16:41 | disposition home or self-care (01) ==
LOC: ER 14:20
DX: S93.491A Sprain of other ligament of right ankle, initial encounter (principal); I10 Essential (primary) hypertension; G89.29 Other chronic pain; F41.9 Anxiety disorder, unspecified; F32.A Depression, unspecified; F10.90 Alcohol use, unspecified, uncomplicated; F12.90 Cannabis use, unspecified, uncomplicated; Z90.710 Acquired absence of both cervix and uterus; Z98.890 Other specified postprocedural states; Z79.2 Long term (current) use of antibiotics; Z79.899 Other long term (current) drug therapy; W18.39XA Other fall on same level, initial encounter; Y93.89 Activity, other specified; Y92.89 Other specified places as the place of occurrence of the external cause; Y99.8 Other external cause status
CPT/HCPCS: 73590; 73610; 73630; 99284

== ENCOUNTER 2024-05-20 02:13 | Emergency (ER) | payer BC ==
[~2024-05-20] VITALS: Ht 157.5 cm; Wt 58.1 kg
[2024-05-20 02:16] VITALS: TEMP 98.2
[2024-05-20 03:59] VITALS: BP 134/80; PULSE 77; RESP 16; O2SAT 96
== END 2024-05-20 04:06 ==
LOC: ER 02:14
DX: S20.212A Contusion of left front wall of thorax, initial encounter (principal); F10.129 Alcohol abuse with intoxication, unspecified; I10 Essential (primary) hypertension; G89.29 Other chronic pain; F41.9 Anxiety disorder, unspecified; F32.A Depression, unspecified; F12.90 Cannabis use, unspecified, uncomplicated; Z79.2 Long term (current) use of antibiotics; Z79.899 Other long term (current) drug therapy; Z98.890 Other specified postprocedural states; Z90.710 Acquired absence of both cervix and uterus; V89.2XXA Person injured in unspecified motor-vehicle accident, traffic, initial encounter; Y93.89 Activity, other specified; Y92.89 Other specified places as the place of occurrence of the external cause; Y99.8 Other external cause status; C7A.00 Malignant carcinoid tumor of unspecified site
CPT/HCPCS: 71045; 93005; 99284

== ENCOUNTER 2025-01-08 15:36 | Emergency (ER) | payer BC, MEDICARE ==
[~2025-01-08] VITALS: Ht 157.5 cm; Wt 57.2 kg
[2025-01-08 15:44] VITALS: TEMP 97.3
--- NOTE | 2025-01-08 15:51 | Physician Documentation ---
History of Present Illness ~ Stated Complaint: ABD PAIN Time Seen by MD: 19:08 Primary Medical Doctor: Dr. Alonso HPI Additional note by Rafa Cotton DO: I took over the care of this patient from previous physician. I reviewed any previous notes available, obtain my own history, review of systems and physical examination was performed by myself. This is a 64-year-old female with a history of alcohol use disorder who comes in for evaluation of an episode of chest pain last night that lasted 1 hour. No particular palliating or aggravating factors. Triggered by sensation of stress because her mom recently . Attempted to treat it by drinking copious amounts of alcohol. Also reports palpitations at the time. No coronary artery disease history. Does report history of hiatal hernia. Medication Reconciliation Allergies: Coded Allergies: No Known Allergies (Unverified , 03/21/24) Scheduled Cephalexin*Monohydrate* (Keflex*), 2 CAP PO BID, (Reported) Folic Acid* (Folic Acid*), 1 MG PO DAILY Multivitamin with Folic Acid (Thera Tablet), 1 EACH PO Q24H Ziprasidone Hcl (Ziprasidone Hcl), 1 CAP PO QPM, (Reported) [thiamine tablet], 100 MG PO DAILY Scheduled PRN Diazepam (Valium), 1 TAB PO HSPRN PRN for sleep, (Reported) Past Medical History Past Medical History: Hypertension, Chronic Pain, *PSYCH*, Anxiety, Bipolar, Depression Past Surgical History: hysterectomy, orthopedic surgeries Patient History: (Cancer) Malignant carcinoid tumor FATHER ( AGE 60) F/H of alcoholism MOTHER, Age: 74 FH: COPD (chronic obstructive pulmonary disease) MOTHER, Age: 74 Alcohol Use: Alcoholic Drug Use: marijuana Lives with: S/O Lives In: Home Review of Systems ROS 10 point review of systems was performed and unless noted above in HPI is negative for acute process/complaint. Physical Exam Physical Exam Physical examination: GENERAL: Awake, alert, oriented, GCS 15, no apparent distress, non-toxic appearing, answers questions, follows commands appropriately. HEENT: Atraumatic, normocephalic, pupils equal, extraocular muscles intact Active gross movements, sclerae anicteric, mucus membranes moist, no stridor. NECK: Midline, no JVD CARDIOVASCULAR: Good skin perfusion without evidence of pallor, mottling. PULMONARY: Nonlabored, symmetric chest rise, no audible wheezing, no accessory muscle use, no respiratory distress, speaking in full sentences. GASTROINTESTINAL: Not distended. NEUROLOGIC: Lucid with normal mental status. Normal facial symmetry. Moves all extremities symmetrically and with purpose. No truncal ataxia. Speech is fluid without evidence of dysarthria or aphasia, no focal deficits appreciated. EXTREMITIES: Acute deformities Skin: warm, dry PSYCHIATRIC: Normal affect, normal insight, normal concentration. Focused exam: [] Progress Results/Orders Results/Orders Completed Orders - RAFA COTTON DO Troponin (Single) (01/08/25 19:09) Ethanol (01/08/25 19:09) Vital Signs 01/08/25 15:44 Temp 97.3 Pulse 113 Resp 18 B/P (MAP) 137/85 Pulse Ox 95 O2 Flow Rate 0 Laboratory Tests Test 01/08/25 16:01 White Blood Count 6.0 Red Blood Count 3.94 L Hemoglobin 12.9 Hematocrit 38.1 Mean Corpuscular Volume 96.7 Mean Corpuscular Hemoglobin 32.8 H Mean Corpuscular Hemoglobin Concent 34.0 Red Cell Distribution Width 14.8 H Platelet Count 231 Mean Platelet Volume 7.5 Neutrophils (%) (Auto) Lymphocytes (%) (Auto) Monocytes (%) (Auto) Eosinophils (%) (Auto) Basophils (%) (Auto) Neutrophils # (Auto) Lymphocytes # (Auto) Monocytes # (Auto) Eosinophils # (Auto) Basophils # (Auto) CBC Comment Differential Total Cells Counted 100 Neutrophils % (Manual) 55.0 Lymphocytes % (Manual) 30.0 Monocytes % (Manual) 10.0 Eosinophils % (Manual) 2.0 Basophils % (Manual) 3.0 H Platelet Estimate Normal Red Blood Cell Morphology Perf Basophilic Stippling Macrocytosis Few Sodium Level 142 Potassium Level 3.5 Chloride Level 104 Carbon Dioxide Level 25.2 Anion Gap 13 Blood Urea Nitrogen 11 Creatinine 0.52 Estimated GFR/1.73 m2 > 90 BUN/Creatinine Ratio 21.2 H Glucose Level 97 Calcium Level 8.7 Total Bilirubin 0.6 Aspartate Amino Transf (AST/SGOT) 144 H Alanine Aminotransferase (ALT/SGPT) 83 H Alkaline Phosphatase 94 Troponin I High Sensitivity 10 Pro-B-Type Natriuretic Peptide 40 Total Protein 8.0 Albumin 4.6 Globulin 3.4 Albumin/Globulin Ratio 1.4 Lipase 34 Chemistry Comments Ethyl Alcohol Level 211 H EKG/XRAY/CT/US/VASC/MRI EKG : Additional Comment EKG was obtained and interpreted by myself showing sinus tachycardic, rate of 108, normal ME interval, narrow QRS, no QT prolongation, normal axis, slight nonspecific repolarization abnormality in inferolateral leads two, three, AVF, V5 and V6 Heart Score: Heart Score Response (Comments) Value History Slightly Suspicious 0 EKG Repolarization Disturb 1 Age >65 2 Risk Factors No known risk factors 0 Troponin Normal limit 0 Total 3 Medical Decision Making Findings Facility Status: ED Holds, RME process The plan was discussed with the patient, who demonstrates clear understanding of the plan and is in agreement with the plan unless otherwise noted in the chart. All questions have been answered, all concerns were addressed unless otherwise documented. I was available throughout their ED stay for frequent reassessment and questions. Differential Diagnoses (considered and possible or likely): [Differential diagnosis considered includes chest wall pain, pleurisy, pneumonia, pulmonary embolus, GERD, esophagitis, gastritis, anxiety, stress reaction, costochondritis, acute coronary syndrome, aortic dissection, pericarditis, myocarditis, or pneumothorax. I] ??Differential Diagnoses (considered and unlikely, not requiring evaluation currently): [Aortic/great vessels dissection was considered but it is unlikely based on absence of ripping, tearing, migratory chest pain, absence of syncope or focal neurologic deficits, physical examination indicating equal and symmetric pulses.] MDM Data Please see [facility] for the following: Independent Historians and external Records Review. Historian: [Patient] Independent Historians: ?[None] Medication Management: [Reviewed medication list] Social History and determinants: [Reviewed] Please see the body of the note for the following: Any independent interpretations of ECG, imaging studies. All vitals signs/haemodynamics, ordered tests were independently reviewed and interpreted by myself. Nursing triage complaint and vitals reviewed, additional nursing notes were reviewed as available and I agree unless otherwise noted or documented in contradiction in the chart Vital Signs: Independently reviewed Labs: Independently interpreted Imaging: Independently interpreted Old Medical Records: Independently reviewed, see [facility] for relevant summary and information Pulse Oximetry: [97%] interpreted as [normal on room air] by me [Criminal Records Technician: Tachycardic Rate, Regular rhythm, no ectopy, sinus tachycardia. reviewed and interpreted by me] Additionally notably showing: [Hemodynamically stable. Tachycardia resolved with the rest. Laboratory studies unremarkable including negative troponin. Given resolution of chest pain or duration of symptoms does not require 2nd troponin. Alcohol is elevated to 11, the lady is drunk.] Tests considered but not ordered include: [Advanced imaging has been considerably does not appear to be necessary] Social Determinants of Health Impact: Patient was evaluated in [facility], or [facility] [place] to healthcare due to below par ratio of patient to medical providers. [] Comorbid Conditions Impacting Present Evaluation and Care/Treatment: [Alcoholism] Management Discussions with other Healthcare Providers: [None] Treatment and Disposition Medication Management (Given or considered): []. See EMR for details Consideration for Hospitalization/Escalation/Deescalation of Care: Admission for observation has been considered, [however the patient is able to tolerate p.o., their symptoms are controlled, they are able to rely on oral medications, and their chief complaint/diagnosis can be managed on outpatient basis.] ?ED Course:?[No clinical deterioration. Heart score of three.] ?Shared decision making:?[Patient is hemodynamically stable for discharge home with follow with their primary care provider. [ ] Specific and cautious return precautions provided and discussed with full understanding. Any incidental findings were also discussed and follow up recommendations given. [] All ques tions answered. Patient/family were able to verbalize back return precautions. Patient/family agree to plan. Copies of imaging and laboratory studies were provided.] Code status:?FULL Please see the full Electronic Medical Record for full details of nursing documentation, medications list, other records of complete past medical history and conditions, vital signs, laboratory studies, and any radiologic study interpretations by radiologists. Portions of this note were completed using [employer] dictation software and as a result there may exist minor errors in spelling. I have reviewed elements of past family and social history and agree as included in note. Departure Disposition: HOME / SELF CARE / HOMELESS Impression: Primary Impression: Chest pain Additional Impressions: Palpitations Stress Grief Alcohol intoxication Condition: Improved Discharge Instructions: Chest Pain Observation Referrals: NO PRIMARY CARE PROVIDER (PCP) Education Educated: Patient Educated regarding: diagnosis, treatment, prognosis, need for follow up Additional Comment Medical Screen Exam 64 y/o female with c/o chest pain which woke her up from her sleep lasted an hour. Patient states that she then started vomiting and the chest pain then became epigastric. Currently reports pain in epigastric area 02/18. +alcoholism. Last drinking last night. +"hernia in my stomach the size of a golf ball." +numerous abdominal surgeries [place] out of state due to migrating mesh from hernia PEX: very tearful, mild distress, appears nauseated. A/P: 1. Epigastric abdominal pain, acute 2. Nausea and vomiting 3. Alcoholism 4. Chest pain-I suspect referred from epigastric area, currently asymptomatic, chest pain episode only occurred last night prior to vomiting Patient is stable to wait for room for further evaluation/treatment The note accurately reflects work and decisions made by me.Kirsten MEDINA 01/08/25 15:54 Signature Scribe Signature: No scribe Attestation: This note accurately reflects clinical decisions, work performed by myself, DO MELONIE Mccain BETSY T PA January 08, 2025 15:51 RAFA COTTON DO January 08, 2025 19:12
--- NOTE | 2025-01-08 15:58 | ELECTROCARDIOGRAPH REPORT ---
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 Luis Miguel Browning Measurements Intervals [place] Rate: 108 P: 74 AR: 132 QRS: 44 QRSD: 87 T: 184 QT: 335 QTc: 449 Interpretive Statements Sinus tachycardia Borderline repolarization abnormality Baseline wander in lead(s) V3 Electronically Signed On 01-09-2025 11:00:[address] Luis Miguel Browning Please click the below link to view image of tracing.
[2025-01-08 16:32] LABS: HEMATOCRIT 38.1 % (35.0-45.0); HEMOGLOBIN 12.9 g/dl (12.0-16.0); MEAN CORPUSCULAR HEMOGLOBIN 32.8 PG (27.0-31.0); MEAN CORPUSCULAR VOLUME 96.7 FL (78-98); MEAN PLATELET VOLUME 7.5 FL (7.4-10.4); PLATELET COUNT 231 X10'3 (140-440); RED BLOOD COUNT 3.94 X10'6 (4.20-5.60); RED CELL DISTRIBUTION WIDTH 14.8 % (11.5-14.5)
--- NOTE | 2025-01-08 16:36 | RADIOLOGY REPORT ---
CHEST RADIOGRAPH Indication: CP Technique: Single frontal view of the chest was obtained COMPARISON: DI CHEST,SINGLE VIEW on DOS: 05/20/24, DI CHEST,SINGLE VIEW on DOS: 08/10/23, DI CHEST,SIN GLE VIEW on DOS: 05/21/23, DI CHEST,SINGLE VIEW on DOS: 05/09/23 FINDINGS: Lines and Tubes: None Lungs: Clear Pleura: No effusion. No pneumothorax. Cardiomediastinal contours: Unremarkable Bones: Unremarkable IMPRESSION: 1. No acute disease.
[2025-01-08 16:41] LABS: ALANINE AMINOTRANSFERASE 83 U/L (12-78); ALBUMIN 4.6 G/DL (3.4-5.0); ALBUMIN/GLOBULIN RATIO 1.4 (1.1-1.5); ALKALINE PHOSPHATASE 94 IU/L (46-116); ANION GAP 13 (8-16); ASPARTATE AMINO TRANSFERASE 144 U/L (10-37); BILIRUBIN,TOTAL 0.6 MG/DL (0.1-1.0); BLOOD UREA NITROGEN 11 MG/DL (7-18); BUN/CREATININE RATIO 21.2 (10.0-20.0); CALCIUM 8.7 MG/DL (8.5-10.1); CHLORIDE 104 MMOL/L (99-107); CREATININE 0.52 MG/DL (0.40-0.90); GLUCOSE 97 MG/DL (70-104); POTASSIUM 3.5 MMOL/L (3.5-5.1); SODIUM 142 MMOL/L (135-145); TOTAL CARBON DIOXIDE 25.2 MMOL/L (24-32); eCRCL 85 ML/MIN; eGFR > 90 ML/MIN
[2025-01-08 16:48] LABS: LIPASE 34 U/L (16-77); PRO BRAIN NATRIURETIC PEPTIDE 40 PG/ML (0-125)
[2025-01-08 17:05] LABS: PLATELET ESTIMATE NORMAL; TOTAL CELLS COUNTED 100
[2025-01-08 19:36] LABS: ETHANOL 211 MG/DL (<10)
[2025-01-08 20:45] VITALS: BP 155/84; PULSE 94; RESP 17; O2SAT 99
== END 2025-01-08 20:49 | disposition home or self-care (01) ==
LOC: ER 15:37
DX: R07.9 Chest pain, unspecified (principal); R00.2 Palpitations; F31.9 Bipolar disorder, unspecified; I10 Essential (primary) hypertension; F32.A Depression, unspecified; F41.9 Anxiety disorder, unspecified; C7A.00 Malignant carcinoid tumor of unspecified site; F10.229 Alcohol dependence with intoxication, unspecified; Y90.9 Presence of alcohol in blood, level not specified; Z90.710 Acquired absence of both cervix and uterus
CPT/HCPCS: 36415; 71045; 80053; 80320; 83690; 83880; 84484; 85007; 85025; 93005; 99285

== ENCOUNTER 2025-08-03 18:41 | Emergency (ER) | payer MEDICARE ==
[~2025-08-03] VITALS: Ht 157.5 cm; Wt 87.0 kg
--- NOTE | 2025-08-03 19:28 | Physician Documentation ---
History of Present Illness ~ Chief Complaint: Mechanical Fall Stated Complaint: FALL/EAR LAC/ NO THINNERS Time Seen by MD: 19:27 OK to notify your PCP?: Yes Primary Medical Doctor: Dr. Alonso Source: patient, family Mode of Arrival: POV Exam Limitations: no limitations HPI Patient arrives from home with concerns of partial ear detachment after a fall. Per her , patient tripped over new carpeting and fell onto her left ear. Denies any LOC. No head/neck/back pain. Bleeding moderately controlled to the left ear, skin abrasion to right posterior hand. Not on blood thinners. This happened 3 hours prior to arrival, had to convince her to come to the ED. Patient denies any other associated symptoms. Patient denies any other alleviating or exacerbating factors at this time. Tetanus within 5 Years?: No (UNK) Medication Reconciliation Allergies: Coded Allergies: No Known Allergies (Unverified , 03/21/24) Scheduled Cephalexin*Monohydrate* (Keflex*), 2 CAP PO BID, (Reported) Cephalexin*Monohydrate* (Keflex*), 1 CAP PO Q8H Folic Acid* (Folic Acid*), 1 MG PO DAILY Multivitamin with Folic Acid (Thera Tablet), 1 EACH PO Q24H Ziprasidone Hcl (Ziprasidone Hcl), 1 CAP PO QPM, (Reported) [thiamine tablet], 100 MG PO DAILY Scheduled PRN Diazepam (Valium), 1 TAB PO HSPRN PRN for sleep, (Reported) Past Medical History Past Medical History: Hypertension, Chronic Pain, *PSYCH*, Anxiety, Bipolar, Depression Past Surgical History: hysterectomy, orthopedic surgeries Patient History: (Cancer) Malignant carcinoid tumor FATHER ( AGE 60) F/H of alcoholism MOTHER, Age: 74 FH: COPD (chronic obstructive pulmonary disease) MOTHER, Age: 74 Alcohol Use: Alcoholic Drug Use: marijuana Lives with: S/O Lives In: Home Review of Systems All Other Systems at this time: Reviewed and Negative ROS As stated above in the HPI, otherwise all systems are reviewed and negative. Physical Exam Vital Signs: RN Vital Signs have been reviewed: Yes, Temperature: 98.6, Source: Temporal, Heart Rate: 83, Respiratory Rate: 15, BP: 148/98, Pulse Oximetry: 97, Weight: 87.000 Pulse Oximetry Reflects: adequate oxygenation Physical Exam General: Patient is awake, alert, oriented x4 in no acute distress and well appearing.~ Head: Normocephalic and atraumatic. Eyes: Conjunctival normal. EOMI. PERRL. ENT: Mucous membranes moist. Left pinna is split through and through from the mid tragus measuring approximately 4cm, no active bleeding. Neck: Supple, trachea is midline. Chest: Clear to auscultation bilaterally without rales, rhonchi, or wheezes. There is no accessory muscle use or retractions. Cardiac: RRR without murmurs, gallops, or rubs. Abd: Soft, nondistended, nontender, with normoactive bowel sounds. No guarding, rebound, or rigidity. Extremities: Normal strength. Normal range of motion. No deformities or edema. Back: No midline spinal or CVA tenderness. Skin: Warm and dry with no significant rash appreciated. Neuro: Cranial nerves II-XII grossly intact. No focal neuro deficits. Patient ambulating without difficulty. Procedures Laceration Repair : Location: left ear Length (cm): 4 Anesthesia: Lidocaine Volume Anesthetic (mls): 1 Margins: revised Foreign Body: not identified Repaired: skin Number of Superficial Sutures: 9 Tolerated Procedure Well?: yes, no complications Progress Results/Orders Results/Orders Orders - REJI CORADO MD Ct [facility] (08/03/25 19:30) Urinalysis, Cult If Indicated (08/03/25 19:35) Drug Screen, Urine (08/03/25 19:35) Dressing Orders (08/03/25 22:26) Completed Orders - REJI CORADO MD Nitroglycerin Top Ointment (Nitro-Bid Ud (08/03/25 19:30) Lidocaine 1% 30ml Vial (Xylocaine 1% Via (08/03/25 19:30) Cbc/Diff (08/03/25 19:35) Ethanol (08/03/25 19:35) Hs Troponin I W Calculations (08/03/25 19:35) CMP (08/03/25 19:35) Lidocaine/Prilocaine Cream (Emla Cream) (08/03/25 19:35) Ct Head (08/03/25 19:30) Cefazolin 1gm/D5w- Add-Dows (Ancef 1 (08/03/25 19:40) Ondansetron Inj. (Zofran 4mg/2ml Vial) (08/03/25 19:50) Bacitracin Ointment (Bacitracin Ointment (08/03/25 22:30) Medications Received in ER Medications (Trade) Dose Ordered Sig/Corbin Route PRN Reason Start Time Stop Time Status Last Admin Dose Admin (EMLA cream) 5 gm ONCE ONCE TP 08/03/25 19:35 08/03/25 19:40 DC 08/03/25 20:56 5 GM Cefazolin Sodium/ Dextrose 50 ml @ 100 mls/hr ONCE ONCE IV 08/03/25 19:40 08/03/25 20:09 DC 08/03/25 20:48 100 MLS/HR (Zofran 4mg/2ml vial) 4 mg ONCE ONCE IV 08/03/25 19:50 08/03/25 20:00 DC 08/03/25 20:44 4 MG (bacitracin ointment) 1 applic ONCE ONCE TP 08/03/25 22:30 08/03/25 22:31 DC 08/03/25 22:54 1 APPLIC Vital Signs 08/03/25 08/03/25 08/03/25 08/03/25 18:46 20:53 21:14 22:49 Temp 98.6 98.6 Pulse 83 76 82 Resp 15 16 16 16 B/P (MAP) 148/98 97/52 (67) 92/51 Pulse Ox 97 98 94 O2 Flow Rate 0 Laboratory Tests Test 08/03/25 20:09 White Blood Count 8.8 Red Blood Count 3.92 L Hemoglobin 12.5 Hematocrit 37.5 Mean Corpuscular Volume 95.6 Mean Corpuscular Hemoglobin 31.9 H Mean Corpuscular Hemoglobin Concent 33.4 Red Cell Distribution Width 16.8 H Platelet Count 485 H Mean Platelet Volume 6.8 L Neutrophils (%) (Auto) 54.1 Lymphocytes (%) (Auto) 34.6 Monocytes (%) (Auto) 7.6 Eosinophils (%) (Auto) 3.0 Basophils (%) (Auto) 0.7 Neutrophils # (Auto) 4.8 Lymphocytes # (Auto) 3.0 Monocytes # (Auto) 0.7 Eosinophils # (Auto) 0.3 Basophils # (Auto) 0.1 CBC Comment Sodium Level 146 H Potassium Level 3.8 Chloride Level 108 H Carbon Dioxide Level 31.5 Anion Gap 7 L Blood Urea Nitrogen 10 Creatinine 0.66 Estimated GFR/1.73 m2 90 BUN/Creatinine Ratio 15.2 Glucose Level 112 H Calcium Level 8.7 Total Bilirubin 0.2 Aspartate Amino Transf (AST/SGOT) 24 Alanine Aminotransferase (ALT/SGPT) 50 Alkaline Phosphatase 80 Troponin I High Sensitivity 6 Total Protein 7.3 Albumin 3.8 Globulin 3.5 Albumin/Globulin Ratio 1.1 Chemistry Comments Ethyl Alcohol Level 218 H EKG/XRAY/CT/US/VASC/MRI CT : Interpreted By: radiologist CT: head With Contrast?: No Impression PROCEDURE: [facility] Study Date and Requested Time: 08/03/2025 07:36 PM History: head strike COMPARISON: MR MRI HEAD on DOS: 05/09/23, CT CT HEAD on DOS: 05/09/23 Dose: CTDI: 57.14 mGy DLP: 1309 22.4 the mGycm TECHNIQUE: Multiplanar images obtained through the brain without intravenous contrast. FINDINGS: Mild Diffuse brain atrophy. Mild chronic small vessel ischemic changes. No hemorrhages, masses, mass effect, midline shift, herniation or cytotoxic edema following a large vascular territory. No intra-axial or extra-axial fluid collections. No evidence of hydrocephalus. The basal cisterns are patent. Right basal ganglia chronic lacunar infarct/ prominent perivascular space. The pituitary gland, sella and parasellar regions are unremarkable. The cerebellar tonsils are in normal position. The cerebellum is unremarkable. The orbits and globes are unremarkable. The paranasal sinuses and mastoids are clear. There are no worrisome calvarial lesions. Cerumen within the Left external auditory canal. Wound with subcutaneous emphysema over the left ear. IMPRESSION: No evidence of acute intracranial abnormality. Electronically Signed by:JO ANN BERNAL DO Date & Time: 08/03/252009 Dictated by: JO ANN BERNAL DO Dictation date and time: 08/03/251929 Primary Care Provider: NO PRIMARY CARE PROVIDER cc: REJI CORADO MD ~ Medical Decision Making Additional information obtaine: N/A Findings Patient presents to the emergency room after fall that has per HPI. Patient appeared intoxicated therefore concerns for possible intracranial process as she does not remember actually what she did cause her ear to be cut therefore CT scan performed which was reassuring. Significant alcohol intoxication but otherwise labs are reassuring. Patient's ear was thoroughly cleaned and IV antibiotics initiated. Patient's ear that has repaired and we will send patient home on a course of antibiotics. ER precautions regarding symptoms of infection discussed. Differential Dx:Considerations: Include: Closed head injury, Cardiac injury, Fracture(s), Intraabdominal injury, Pneumothorax, Cerebral contusion, Pulmonary contusion, Spine injury, Tracheal injury, Urological injury, Vascular injury, Abrasion(s), Contusion(s), Foreign body(s), Hematoma(s), Laceration(s), Encephalopathy, Other Departure Time of Disposition: 22:15 Disposition: 01 HOME / SELF CARE / HOMELESS Impression: Primary Impression: Laceration of ear Qualified Codes: S01.312A - Laceration without foreign body of left ear, initial encounter Additional Impression: Alcohol intoxication Qualified Codes: F10.920 - Alcohol use, unspecified with intoxication, uncomplicated Condition: Stable Additional Instructions: Make sure you finish and take all your antibiotics. Your sutures are dissolvable, they will dissolve over the course of the next 1-2 months. Referrals: NO PRIMARY CARE PROVIDER (PCP) Prescriptions Cephalexin*Monohydrate* (Keflex*) 500 Mg Capsule 1 CAP PO Q8H for 10 Days, #30 CAP Prov: REJI CORADO MD 08/03/25 Education Educated: Patient Educated regarding: diagnosis, treatment, need for follow up Signature Scribe Signature: Scribed for Reji Corado MD by Mercedez Cain . 08/03/25 21:12 Attestation: The note accurately reflects work and decisions made by me.Reji Corado MD 08/04/25 02:25 REJI CORADO MD Aug 03, 2025 19:28 MERCEDEZ ALMANZA Aug 03, 2025 21:12
[2025-08-03] MEDS: LIDOcaine 1% 30ml preserv. free vial IJ ONE (19:30)
[2025-08-03] MEDS: nitroGLYCERIN 1gm ointment UD TP ONE (19:30)
--- NOTE | 2025-08-03 20:12 | RADIOLOGY REPORT ---
PROCEDURE: CT [facility] Study Date and Requested Time: 08/03/2025 07:36 PM History: head strike COMPARISON: MR MRI HEAD on DOS: 05/09/23, CT CT HEAD on DOS: 05/09/23 Dose: CTDI: 57.14 mGy DLP: 1309 22.4 the mGycm TECHNIQUE: Multiplanar images obtained through the brain without intravenous contrast. FINDINGS: Mild Diffuse brain atrophy. Mild chronic small vessel ischemic changes. No hemorrhages, masses, mass effect, midline shift, herniation or cytotoxic edema following a large vascular territory. No intra-axial or extra-axial fluid collections. No evidence of hydrocephalus. The basal cisterns are patent. Right basal ganglia chronic lacunar infarct/ prominent perivascular space. The pituitary gland, sella and parasellar regions are unremarkable. The cerebellar tonsils are in normal position. The cerebellum is unremarkable. The orbits and globes are unremarkable. The paranasal sinuses and mastoids are clear. There are no worrisome calvarial lesions. Cerumen within the Left external auditory canal. Wound with subcutaneous emphysema over the left ear. IMPRESSION: No evidence of acute intracranial abnormality.
[2025-08-03 20:22] LABS: MEAN PLATELET VOLUME 6.8 FL (7.4-10.4); RED CELL DISTRIBUTION WIDTH 16.8 % (11.5-14.5)
[2025-08-03 20:31] LABS: CREATININE 0.66 MG/DL (0.40-0.90); ETHANOL 218 MG/DL (<10); TOTAL CARBON DIOXIDE 31.5 MMOL/L (24-32); eCRCL 66 ML/MIN; eGFR 90 ML/MIN
[2025-08-03] MEDS: ondansetron/PF 4mg/2ml inj IV ONE (20:44)
[2025-08-03] MEDS: ceFAZolin 1GM/D5W- ADD-VANTAGE 50 ML IV ONE (20:48)
[2025-08-03] MEDS: LIDOcaine/PRILOcaine 5gm cream TP ONE (20:56)
[2025-08-03] MEDS ORDERED: CEPH-585 PO (22:03)
[2025-08-03 22:49] VITALS: BP 92/51; PULSE 82; RESP 16; TEMP 98.6; O2SAT 94
[2025-08-03] MEDS: bacitracin 15gm ointment TP ONE (22:54)
== END 2025-08-03 22:54 | disposition home or self-care (01) ==
LOC: ER 18:42
DX: S01.312A Laceration without foreign body of left ear, initial encounter (principal); I10 Essential (primary) hypertension; G89.29 Other chronic pain; F31.9 Bipolar disorder, unspecified; F12.90 Cannabis use, unspecified, uncomplicated; F10.229 Alcohol dependence with intoxication, unspecified; F41.9 Anxiety disorder, unspecified; Y90.9 Presence of alcohol in blood, level not specified; Z90.710 Acquired absence of both cervix and uterus; Z79.899 Other long term (current) drug therapy; Z98.890 Other specified postprocedural states; W01.0XXA Fall on same level from slipping, tripping and stumbling without subsequent striking against object, initial encounter; Y93.89 Activity, other specified; Y92.89 Other specified places as the place of occurrence of the external cause; Y99.8 Other external cause status
CPT/HCPCS: 12013; 36415; 70450; 80053; 80320; 84484; 85025; 96365; 96366; 96375; 99285; J0690; J2405; J7030; A6449